=== PATIENT | male | born 1980 | race African-American/Black ===

== ENCOUNTER 2020-09-09 10:42 | Outpatient (REF) | payer OTHER, SELFPAY | END 2020-09-09 10:43 | disposition home or self-care (01) | LOC: HO.LAB 10:42 | PROVIDERS: Visit Provider Internal Medicine | DX: Z20.828 Contact with and (suspected) exposure to other viral communicable diseases (principal) | CPT/HCPCS: C9803; U0003 ==

== ENCOUNTER 2021-09-11 10:58 | Emergency (ER) | payer OTHER, SELFPAY ==
--- NOTE | ~2021-09-11 | US_ITS ---
EXAMINATION: US SCROTUM CLINICAL INFORMATION: Right scrotal pain and swelling x3 days.. COMPARISON: None TECHNIQUE: A sonogram of the scrotum was performed assessing velazquez-scale appearance and color Doppler flow. Spectral Doppler analysis of the arterial and venous flow were performed in the testes bilaterally. FINDINGS: RIGHT: Right testicle measures 5.2 x 3.0 x 3.8 cm, volume 20.7 mL. No focal testicular parenchymal lesions are visualized. Spectral Doppler analysis of the arterial and venous flow is normal in the right testis. There is an extra testicular anechoic lesion with septation measuring 2.6 x 2.8 x 3.6 cm with mild mass effect on the right testes. Likely extra testicular cyst. There is an echogenic scrotal shamar in between the epididymis and the right testicle measuring 0.4 x 0.5 cm. Right epididymal head is normal in size. No right hydrocele or varicocele is seen. Right epididymal Doppler flow is increased in the body and the tail of pancreas, suspicious for epididymitis. LEFT: Left testicle measures 3.9 x 2.4 x 2.7 cm, volume 13.2 mL. No focal testicular parenchymal lesions are visualized. Spectral Doppler analysis of the arterial and venous flow is normal in the left testis. Left epididymal head is normal in size. There is a small left hydrocele. No varicocele is seen. Left epididymal Doppler flow is normal. US/US scrotum doppler IMPRESSION: Enlarged right testes likely secondary to moderate-sized extra testicular cyst compressing the testes. Right scrotal shamar. Suspect right body and tail epididymitis. Trace left hydrocele.
--- NOTE | ~2021-09-11 | US_ITS ---
EXAMINATION: US SCROTUM CLINICAL INFORMATION: Right scrotal pain and swelling x3 days.. COMPARISON: None TECHNIQUE: A sonogram of the scrotum was performed assessing velazquez-scale appearance and color Doppler flow. Spectral Doppler analysis of the arterial and venous flow were performed in the testes bilaterally. FINDINGS: RIGHT: Right testicle measures 5.2 x 3.0 x 3.8 cm, volume 20.7 mL. No focal testicular parenchymal lesions are visualized. Spectral Doppler analysis of the arterial and venous flow is normal in the right testis. There is an extra testicular anechoic lesion with septation measuring 2.6 x 2.8 x 3.6 cm with mild mass effect on the right testes. Likely extra testicular cyst. There is an echogenic scrotal shamar in between the epididymis and the right testicle measuring 0.4 x 0.5 cm. Right epididymal head is normal in size. No right hydrocele or varicocele is seen. Right epididymal Doppler flow is increased in the body and the tail of pancreas, suspicious for epididymitis. LEFT: Left testicle measures 3.9 x 2.4 x 2.7 cm, volume 13.2 mL. No focal testicular parenchymal lesions are visualized. Spectral Doppler analysis of the arterial and venous flow is normal in the left testis. Left epididymal head is normal in size. There is a small left hydrocele. No varicocele is seen. Left epididymal Doppler flow is normal. US/US scrotum IMPRESSION: Enlarged right testes likely secondary to moderate-sized extra testicular cyst compressing the testes. Right scrotal shamar. Suspect right body and tail epididymitis. Trace left hydrocele.
[2021-09-11 11:22] VITALS: BP 125/90; PULSE 64; RESP 18; TEMP 36.8; O2SAT 99; BMI 28.8
--- NOTE | 2021-09-11 11:43 | ED_ITS ---
HPI - Male Genitourinary General Chief complaint: Urogenital-Male Stated complaint: R TESTICLE TO RIB CAGE R SIDE PAIN Time Seen by Provider: 09/11/21 11:00 Source: patient Mode of arrival: ambulatory Limitations: no limitations History of Present Illness Complaint: testicle pain and testicle swelling Onset (ago): day(s) (3) Duration: progressively worsening Location: right testicle Radiation: abdomen (states it hurts all the way up to his chest at times) Severity: moderate Quality: sharp Relieving factors: none Exacerbating factors: palpation and movement Associated symptoms: Reports swelling Related Data Previous Rx's Medication Instructions Recorded doxycycline hyclate 100 mg capsule 100 mg PO BID 10 Days #20 cap 09/11/21 Allergies Allergy/AdvReac Type Severity Reaction Status Date / Time SHELLFISH Allergy Severe SWELLING Uncoded 06/20/20 15:08 Shellfish Allergy Unknown anaphylaxis Uncoded 10/28/18 00:00 shellfish Allergy Unknown Uncoded 01/26/20 00:00 Review of Systems Review of Systems: Constitutional : No Weight loss, No Fever, No Chills ENT/Mouth : No sore throat, No Rhinorrhea Eyes: No Swelling, No Redness Cardiovascular : No Chest Pain, No SOB, NoEdema Respiratory : No Cough, No Sputum, No Wheezing Gastrointestinal : no Nausea, no Vomiting, no Diarrhea, positive abdominal Pain, No Hematochezia, No Melena Genitourinary : No Dysuria, No Urinary Frequency, No Hematuria, No Urgency , pos testicular pain Musculoskeletal : No joint pain, No Myalgias, No Joint Swelling Skin : No Skin Lesions, No rash Neuro : No Weakness, No Numbness, No Dizziness, No Headache Psych : No Anxiety/Panic, No Depression Heme/Lymph: No Bruising, No Lymphadenopathy Endocrine : No Polyuria, No Polydipsia All other systems reviewed and are negative. [facility] Past Medical History Medical History (Updated 09/11/21 @ 14:05 by Jaja Muse DO) No known health problems Social History Social History Advance Directives: No Advance Directives Information Provided: Yes Physical Exam Vital Signs: Vital Signs: Last Vital Signs Temp 97.9 F 09/11/21 12:49 Pulse 54 09/11/21 12:49 Resp 16 09/11/21 12:49 BP 129/70 09/11/21 12:49 Pulse Ox 99 09/11/21 12:49 BMI result Body Mass Index 28.8 Appearance: Alert. Oriented X3. No acute distress. Eyes: Pupils equal, round and reactive to light. ENT: Pharynx normal. Neck: Normal inspection. Neck supple. CVS: Normal heart rate and rhythm. Pulses normal. Respiratory: No respiratory distress. Breath sounds normal. Abdomen: Soft and nontender. no mass felt : scrotum appears normal, moderate ttp over spermatic cord Skin: Skin warm and dry. Normal skin color. Normal skin turgor. Extremities: No lower extremity edema. No calf ttp Neuro: Oriented X 3. No motor deficit. No sensory deficit. MDM - Male Genitourinary MDM Narrative Medical decision making narrative: 41 yo male with no sig PMH here with R testicular pain x 3 days no trauma no sig associated symptoms most pain over the spermatic cord. At this time labs, UA, G+C, US to evaluate for epidydimitis - PO pain medications. Dispo per results and findings. Lab Data Result diagrams: 09/11/21 12:15 09/11/21 12:15 Labs: Lab Results 09/11/21 09/11/21 09/11/21 Range/Units 12:15 12:15 12:50 WBC 5.7 (4.8-10.8) X10*3/uL RBC 5.33 (4.60-5.80) X10*6/uL Hgb 16.1 (14.0-18.0) g/dl Hct 45.7 (42.0-52.0) % MCV 85.7 (80.0-98.0) fL MCH 30.2 (27.0-33.0) pg MCHC 35.2 (31.0-36.0) g/dl RDW 12.5 (11.0-16.0) % Plt Count 230 (160-400) X10*3/uL MPV 8.8 L (9.4-12.4) fL Immature Gran % (Auto) 0.2 (0.0-0.4) % Neut % (Auto) 44.5 L (45-73) % Lymph % (Auto) 40.5 H (20-40) % [place] % (Auto) 12.5 H (2-11) % Eos % (Auto) 1.9 (0-4) % Baso % (Auto) 0.4 (0-2) % Lymph # (Auto) 2.3 (1.2-4.9) X10*3/uL [place] # (Auto) 0.7 (0.1-1.2) X10*3/uL Eos # (Auto) 0.1 (0.0-0.4) X10*3/uL Baso # (Auto) 0.0 (0.0-0.2) X10*3/uL Abs Immat Gran (auto) 0.01 (0.00-0.03) X10*3/uL Absolute Neuts (auto) 2.5 (2.0-8.3) x10*3/uL Absolute Nucleated RBC 0.000 (0.0-0.012) X10*3/uL Nucleated RBC % (auto) 0.0 (0.0-0.2) /100WBC Sodium 138 (135-145) mmol/L Potassium 4.0 (3.3-5.1) mmol/L Chloride 105 (96-108) mmol/L Carbon Dioxide 24 (22-29) mmol/L Anion Gap 13 (12-20) BUN 11 (9-16) mg/dL Creatinine 1.09 (0.5-1.4) mg/dL Estim Creat Clear Calc 98.1 Estimated GFR > 60 Random Glucose 91 (60-115) mg/dL Calcium 9.5 (8.4-10.2) mg/dL Urine Color STRAW Urine Appearance CLEAR Urine pH 6.0 (5.0-8.0) Ur Specific [place] <= 1.005 (1.005-1.025) Urine Protein NEG (NEG-TRACE) MG/DL Urine Glucose (UA) NEG (NEG) MG/DL Urine Ketones NEG (NEG) MG/DL Urine Blood NEG (NEG) Urine Nitrite NEG (NEG) Ur Leukocyte Esterase NEG (NEG) Discharge Plan Discharge Clinical Impression: Epididymitis, Cyst of testis Patient Disposition: Home, Self-Care Instructions: Epididymitis (ED), Testicle Pain (ED) Additional Instructions: return to ED for any worsening symptoms or concerns possible STI - typically in your age range this infection is gonorrhea or chlamydia wear tight supportive underwear STD results back in 3 days - use a condom, alert your partner practice safe sex Prescriptions: New doxycycline hyclate 100 mg capsule 100 mg PO BID 10 Days Qty: 20 RF: 0 Referrals: Yariel Campbell MD [Physician] - 1 week (cyst on right testicle) Stand Alone Forms: Work/School Release
[2021-09-11] MEDS: HYDROcodone Bit/Acetam 5/325 TABLET 1 TAB PO (12:10)
[2021-09-11 12:22] LABS: MANUAL DIFF FLAG NO
[2021-09-11 12:26] LABS: Basophils Percent Auto 0.4 % (0-2); Eosinophils Absolute Auto 0.1 X10*3/uL (0.0-0.4); Eosinophils Percent Auto 1.9 % (0-4); Hematocrit 45.7 % (42.0-52.0); Hemoglobin 16.1 g/dl (14.0-18.0); Imm Gran Abs Auto 0.01 X10*3/uL (0.00-0.03); Imm Gran Pct Auto 0.2 % (0.0-0.4); Lymphocytes Absolute Auto 2.3 X10*3/uL (1.2-4.9); Lymphocytes Percent Auto 40.5 % (20-40); Mean Corpuscular HGB Conc 35.2 g/dl (31.0-36.0); Mean Corpuscular Hemoglobin 30.2 pg (27.0-33.0); Mean Corpuscular Volume 85.7 fL (80.0-98.0); Mean Platelet Volume 8.8 fL (9.4-12.4); Monocytes Absolute Auto 0.7 X10*3/uL (0.1-1.2); Monocytes Percent Auto 12.5 % (2-11); Neutrophils Absolute Auto 2.5 x10*3/uL (2.0-8.3); Neutrophils Percent Auto 44.5 % (45-73); Platelet Count 230 X10*3/uL (160-400); Red Blood Count 5.33 X10*6/uL (4.60-5.80); Red Cell Distribution Width 12.5 % (11.0-16.0); White Blood Count 5.7 X10*3/uL (4.8-10.8)
[2021-09-11 12:40] LABS: Anion Gap 13 (12-20); Blood Urea Nitrogen 11 mg/dL (9-16); Calcium 9.5 mg/dL (8.4-10.2); Carbon Dioxide 24 mmol/L (22-29); Chloride 105 mmol/L (96-108); Creatinine Clr Calc Pharmacy 98.1; Estimated Glomerular Filt Rate > 60; Glucose Random 91 mg/dL (60-115); Sodium 138 mmol/L (135-145)
[2021-09-11 12:49] VITALS: BP 129/70; PULSE 54; RESP 16; TEMP 36.6; O2SAT 99
[2021-09-11 13:03] LABS: Appearance Urine CLEAR; Color Urine STRAW; Glucose Urine UA NEG (NEG); Leukocyte Esterase Urine NEG (NEG); Nitrite Urine NEG (NEG); Specific Gravity - Urine <= 1.005 (1.005-1.025); Urine Blood NEG (NEG); Urine Ketones NEG (NEG); Urine Protein NEG (NEG-TRACE)
[2021-09-11] MEDS: cefTRIAXone sodium 500 MG, Lidocaine HCl 1 % MPF 1 ML IM (14:17)
[2021-09-11 14:57] LABS: CT PCR NOT DETECTED (Not Detect.); NG PCR NOT DETECTED (Not Detect.)
== END 2021-09-11 14:30 | disposition home or self-care (01) ==
PROVIDERS: Emergency Provider Emergency Medicine
DX: N45.1 Epididymitis (principal); N44.2 Benign cyst of testis; N50.811 Right testicular pain
CPT/HCPCS: 36415; 76870; 80048; 81003; 85025; 87491; 87591; 93975; 96372; 99284; J0696